=== PATIENT | male | born 1985 | race Caucasian/White ===

== ENCOUNTER → 2016-10-23 | Emergency (ER) | payer OTHER ==
[~2016-10-23] VITALS: Ht 182.9 cm; Wt 59.0 kg
[~2016-10-23] MED LIST: NORCO 5-325 TA1 EACH PO
== END | disposition home or self-care (01) ==
LOC: ED 22:36
PROC: 0HQ1XZZ Repair Face Skin, External Approach (ICD-10-PCS; principal; 2016-10-23)
DX: S01.81XA Laceration without foreign body of other part of head, initial encounter (principal); Z87.891 Personal history of nicotine dependence; W22.8XXA Striking against or struck by other objects, initial encounter
CPT/HCPCS: 12013; 99283

== ENCOUNTER 2017-04-28 12:33 | Emergency (ER) | payer OTHER ==
[~2017-04-28] VITALS: Ht 182.9 cm; Wt 59.0 kg
== END 2017-04-28 12:49 | disposition home or self-care (01) ==
LOC: ED 12:33
DX: R21 Rash and other nonspecific skin eruption (principal)

== ENCOUNTER 2024-02-03 08:41 | Emergency (ER) | payer BC ==
[~2024-02-03] VITALS: Ht 182.9 cm; Wt 64.9 kg
--- OUTSIDE RECORDS SUMMARY | 2024-02-03 08:47 | XMS ---
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 Blanka has no Care Guidelines for this patient. [facility] VISIT COUNT (12 MO.) 1 [facility] TOTAL 1 NOTE: Visits indicate total known visits. ED/C VISIT TRACKING (12 MO.) 02/03/2024 08:41 [facility] [place] TYPE: Emergency COMPLAINT: - STD EXPOSURE INPATIENT VISIT TRACKING (12 MO.) No inpatient visits to display in this time frame [email or web address]
[2024-02-03 09:56] LABS: BILIRUBIN, URINE NEGATIVE (negative); BLOOD/HGB, URINE NEGATIVE (Negative); KETONE, URINE NEGATIVE (Negative); LEUK ESTERASE, URINE TRACE (negative); NITRITE, URINE NEGATIVE (negative)
[2024-02-03 10:02] LABS: BACTERIA, URINE 1+ /hpf (negative); CASTS, URINE NONE SEEN \\lpf; CRYSTALS, URINE NONE SEEN (0-1+); EPITHELIAL CELLS, URINE SQUAMOUS 1+ /lpf (0-1+); RED BLOOD CELLS, URINE 0-1 /hpf (0-5)
[2024-02-03 10:03] LABS: COLLECTION TYPE, URINE CLEAN CATCH; REFLEX CULTURE, URINE No (No)
[2024-02-03 11:22] LABS: N. GONORRRHOEAE BY PCR NOT DETECTED (NOT DETECT)
[2024-02-03 12:10] VITALS: BP 120/71
== END 2024-02-03 12:10 | disposition home or self-care (01) ==
LOC: ED 08:41
PROVIDERS: Emergency Medicine
DX: R30.0 Dysuria (principal); R35.0 Frequency of micturition; Z20.2 Contact with and (suspected) exposure to infections with a predominantly sexual mode of transmission
CPT/HCPCS: 81001; 99283

== ENCOUNTER 2024-04-17 08:42 | Emergency (ER) | payer BC ==
[~2024-04-17] VITALS: Ht 182.9 cm; Wt 66.7 kg
--- OUTSIDE RECORDS SUMMARY | 2024-04-17 08:49 | XMS ---
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 EJessica VISIT COUNT (12 MO.) 2 [facility] TOTAL 2 NOTE: Visits indicate total known visits. ED/UCC VISIT TRACKING (12 MO.) 04/17/2024 08:42 [facility] [place] TYPE: Emergency COMPLAINT: - SHORTNESS OF BREATH 02/03/2024 08:41 [facility] [place] TYPE: Emergency COMPLAINT: - STD EXPOSURE DIAGNOSES: - Contact with and (suspected) exposure to infections with a predominantly sexual mode of transmission - Dysuria - Frequency of micturition INPATIENT VISIT TRACKING (12 MO.) No inpatient visits to display in this time frame [id number]
[2024-04-17] MEDS ORDERED: ALBUTEROL/IPRATROPIUM 3 ML NEB INH ONE (09:30)
[2024-04-17] MEDS ORDERED: predniSONE 20 MG TAB PO ONE (09:30)
[2024-04-17] MEDS ORDERED: ADVAIR 100-501 EACH INH (10:47)
[2024-04-17] MEDS ORDERED: VENTOLIN HFA18 GM INH (10:47)
[2024-04-17] MEDS ORDERED: PREDNISONE20 MG PO (10:47)
[2024-04-17 10:54] VITALS: BP 134/82
--- NOTE | 2024-04-17 22:05 | EKG ---
[facility] [address] [place] [address] Signed Normal sinus rhythm Possible Right ventricular hypertrophy Abnormal ECG No previous ECGs available Confirmed by Elvia Tay MD () on 04/17/2024 10:05:44 PM Electronically Signed By: ELVIA TAY MD 04/17/242204 PATIENT NAME: SIMON CHRISTINE Electrocardiogram DATE OF : 81 PHYSICIAN: ELVIA TAY MD REPORT #: [id number] REPORT IS CONFIDENTIAL AND NOT TO BE RELEASED WITHOUT AUTHORIZATION
== END 2024-04-17 10:56 | disposition home or self-care (01) ==
LOC: ED 08:42
DX: J45.901 Unspecified asthma with (acute) exacerbation (principal)
CPT/HCPCS: 71045; 93005; 93010; 94640; 99285-25; J7512

== ENCOUNTER 2024-04-24 07:01 | Emergency (ER) | payer BC ==
[~2024-04-24] VITALS: Ht 182.9 cm; Wt 61.2 kg
[~2024-04-24 07:01] MED LIST changes: +ADVAIR 100-501 EACH INH; +PREDNISONE20 MG PO; +VENTOLIN HFA18 GM INH
--- OUTSIDE RECORDS SUMMARY | 2024-04-24 07:08 | XMS ---
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 [facility]kha VISIT COUNT (12 MO.) 3 [facility] TOTAL 3 NOTE: Visits indicate total known visits. ED/UCC VISIT TRACKING (12 MO.) 04/24/2024 07:01 [facility] [place] TYPE: Emergency COMPLAINT: - COLD SYMPTOMS 04/17/2024 08:42 [facility] [place] TYPE: Emergency COMPLAINT: - SHORTNESS OF BREATH DIAGNOSES: - Shortness of breath - Unspecified asthma with (acute) exacerbation 02/03/2024 08:41 [facility] [place] TYPE: Emergency COMPLAINT: - STD EXPOSURE DIAGNOSES: - Contact with and (suspected) exposure to infections with a predominantly sexual mode of transmission - Dysuria - Frequency of micturition INPATIENT VISIT TRACKING (12 MO.) No inpatient visits to display in this time frame [id number]
[2024-04-24] MEDS ORDERED: PREDNISONE20 MG PO (07:31)
[2024-04-24] MEDS ORDERED: PROAIR RESPICL90 MCG INH (07:31)
[2024-04-24] MEDS ORDERED: ZITHROMAX250 MG PO (07:31)
== END 2024-04-24 07:42 | disposition home or self-care (01) ==
LOC: ED 07:01
DX: A37.90 Whooping cough, unspecified species without pneumonia (principal); J44.89 Other specified chronic obstructive pulmonary disease; Z79.51 Long term (current) use of inhaled steroids
CPT/HCPCS: 99284

== ENCOUNTER 2024-12-12 07:56 | Emergency (ER) | payer BC ==
[~2024-12-12] VITALS: Ht 182.9 cm; Wt 67.8 kg
[~2024-12-12 07:56] MED LIST changes: +PROAIR RESPICL90 MCG INH; +ZITHROMAX250 MG PO
--- OUTSIDE RECORDS SUMMARY | 2024-12-12 08:02 | XMS ---
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 EJessica VISIT COUNT (12 MO.) 4 [facility] TOTAL 4 NOTE: Visits indicate total known visits. ED/UCC VISIT TRACKING (12 MO.) 12/12/2024 07:57 [facility] [place] TYPE: Emergency COMPLAINT: - SHORTNESS OF BREATH 04/24/2024 07:01 [facility] [place] TYPE: Emergency COMPLAINT: - COLD SYMPTOMS DIAGNOSES: - group home (current) use of inhaled steroids - Other specified chronic obstructive pulmonary disease - Shortness of breath - Whooping cough, unspecified species without pneumonia 04/17/2024 08:42 [facility] [place] TYPE: Emergency COMPLAINT: - SHORTNESS OF BREATH DIAGNOSES: - Shortness of breath - Unspecified asthma with (acute) exacerbation 02/03/2024 08:[address] [facility] [place] TYPE: Emergency COMPLAINT: - STD EXPOSURE DIAGNOSES: - Contact with and (suspected) exposure to infections with a predominantly sexual mode of transmission - Dysuria - Frequency of micturition INPATIENT VISIT TRACKING (12 MO.) No inpatient visits to display in this time frame [id number]
[2024-12-12] MEDS ORDERED: predniSONE 20 MG TAB PO ONE (08:15)
[2024-12-12] MEDS ORDERED: ALBUTEROL/IPRATROPIUM 3 ML NEB INH ONE (08:15)
[2024-12-12] MEDS ORDERED: VENTOLIN HFA18 GM INH (09:04)
[2024-12-12] MEDS ORDERED: PREDNISONE20 MG PO (09:04)
[2024-12-12 09:16] VITALS: BP 124/76
== END 2024-12-12 09:16 | disposition home or self-care (01) ==
LOC: ED 07:56
DX: J45.901 Unspecified asthma with (acute) exacerbation (principal)
CPT/HCPCS: 94640; 99284; J7512